=== PATIENT | female | born 2000 | race Hispanic/Latino ===

== ENCOUNTER 2024-07-21 01:18 | Observation (INO) | payer BC, OTHER ==
[2024-07-21] MEDS ORDERED: Boostrix 0.5 ML (Tdap) VIAL (>/=7 yrs of age) ONE (01:25)
[2024-07-21] MEDS ORDERED: Sodium Chloride 0.9% 100 ML ONE (01:25)
[2024-07-21] MEDS ORDERED: CEFAZOLIN 2 GM VIAL ONE (01:25)
[2024-07-21 02:07] LABS: Alcohol 236.5 mg/dL (Less than 10)
[2024-07-21] MEDS ORDERED: Lidocaine 1% w/Epinephrine 1:100K 20 ML VIAL ONE (02:07)
[2024-07-21 02:08] LABS: #Basophils 0.04 10x3/uL (0.0-0.2); #Eosinophils Less than 0.03 10x3/uL (0.0-0.7); %Basophils 0.7 % (0.0-1.0); %Eosinophils 0.4 % (0.0-10.0); %Lymphocytes 25.6 % (21.0-51.0); %Monocytes 5.7 % (0.0-10.0); %Neutrophils 66.5 % (42.0-75.0); Hematocrit 32.8 % (36.0-47.0); Hemoglobin 11.3 g/dL (12.0-16.0); Mean Corpuscular HGB CONC 34.5 g/dL (32.0-36.0); Mean Corpuscular Volume 90.1 fL (78.0-98.0); Mean Platelet Volume 10.4 fL (7.4-10.4); Platelet Count 206 10x3/uL (130-400); RBC Distribution Width 13.1 % (11.5-14.5); Red Blood Cell (RBC) Count 3.64 mill/uL (4.20-5.40)
[2024-07-21 02:10] LABS: ALT (SGPT) 9 U/L (8-55); AST (SGOT) 14 U/L (5-34); Albumin 4.6 g/dL (3.5-5.0); Alkaline Phosphatase 68 U/L (40-110); Anion Gap 14 mmol/L (10-20); BUN (Urea Nitrogen) 5 mg/dL (7.0-18.7); Bilirubin, Total 0.7 mg/dL (0.2-1.2); Calc. Creatinine Clearance 0 mL/min (70-130); Carbon Dioxide 20 mmol/L (22-29); Chloride 111 mmol/L (98-107); Estimated GFR 104; Globulin 2.8 g/dL (2.4-3.5); Glucose 123 mg/dL (70-105); Lipase 16 U/L (8-78); Potassium 3.2 mmol/L (3.5-5.1); Protein, Total 7.4 g/dL (6.0-8.3); Sodium 142 mmol/L (136-145)
[2024-07-21 02:11] LABS: PTT 24.7 sec (22.9-36.1); Prothrombin Time 13.3 sec (12.0-14.7)
[2024-07-21 02:16] LABS: Troponin I Less than 0.010 ng/mL (< 0.028)
[2024-07-21 03:37] LABS: Actual Bicarbonate (HCO3v) 19.1 mEq/L (22-28); Base Excess -6.8 mEq/L (-2.0 to +3.0); Calcium, Ionized (venous) 0.99 mmol/L (1.16-1.32); Chloride (VBG) 117 mmol/L (98-106); Hematocrit-VBG 33 % (36.0-47.0); Hemoglobin (Hb) 11.3 g/dL (11.7-15.5); Potassium (VBG) 3.46 mmol/L (3.70-5.30); Sodium 145 mmol/L (133-146); pH (venous) 7.298 (7.32-7.43)
[2024-07-21 04:48] LABS: Bacteria/HPF None Seen HPF (None Seen); Bilirubin Negative (Negative); Blood, Urine Negative (Negative); CAUTI Indications for Culture Spinal Cord Injury; Clarity Clear (Clear); Glucose, Urine (Dipstick) Normal (Negative); Ketone, Urine Negative (Negative); Leukocyte Negative Leu/uL (Negative); Nitrite Negative (Negative); Protein, Urine (Dipstick) Negative (Neg-Trace); RBC/HPF 0-3 HPF (0-3); Specific Gravity, Urine 1.027 (1.002-1.036); Squamous Epithelial None Seen HPF (0-3); Urobilinogen Normal mg/dL (Less than 2); WBC/HPF None Seen HPF (0-3); pH, Urine 5.5 (5.0-9.0)
[2024-07-21 04:50] LABS: Urine Culture Reflex No No
[2024-07-21 04:51] LABS: Amphetamine Not Detected (NotDetected); Barbiturates Screen Not Detected (NotDetected); Benzodiazepine Screen Not Detected (NotDetected); Cocaine Metabolite Screen Not Detected (NotDetected); Methadone Not Detected (NotDetected); Methamphetamine Not Detected (NotDetected); Opiate Screen Not Detected (NotDetected); Oxycodone Screen Not Detected (NotDetected); Phencyclidine (PCP) Not Detected (NotDetected); THC/Cannabinoid Screen Not Detected (NotDetected); Tricyclic Screen Not Detected (NotDetected)
[2024-07-21] MEDS ORDERED: Ondansetron ODT 4 MG TAB PO PRN (05:08)
[2024-07-21] MEDS ORDERED: Morphine 2 MG/ML VIAL SLOW IVP PRN (05:08)
[2024-07-21] MEDS ORDERED: Dextrose 5% in Water 1,000 ML IV PRN (05:08)
[2024-07-21] MEDS ORDERED: Acetaminophen 325 MG TAB PO PRN (05:08)
[2024-07-21] MEDS ORDERED: Glucagon 1 MG/ML KIT IM PRN (05:08)
[2024-07-21] MEDS ORDERED: Morphine 4 MG/ML VIAL SLOW IVP PRN (05:08)
[2024-07-21] MEDS ORDERED: Dextrose 50% Abboject 50 ML SYRINGE SLOW IVP PRN (05:08)
[2024-07-21 05:42] VITALS: BMI 24.6
[2024-07-21 05:43] VITALS: TEMP 98.8
[2024-07-21] MEDS ORDERED: Acetaminophen 500 MG TAB ONE (05:45)
[2024-07-21 08:53] VITALS: BP 118/70
[2024-07-21] MEDS ORDERED: Iopamidol-370 76% 500 ML MDV (1 ML CHARGE) ONE (09:47)
== END 2024-07-21 10:11 | disposition home or self-care (01) ==
LOC: ERS 01:18 → ERHOLD 03:01
PROVIDERS: ADMIT Surgery; ATTEND Surgery
DX: R20.2 Paresthesia of skin (principal); S01.112A Laceration without foreign body of left eyelid and periocular area, initial encounter; S02.2XXA Fracture of nasal bones, initial encounter for closed fracture; I95.9 Hypotension, unspecified; F10.90 Alcohol use, unspecified, uncomplicated; Y90.9 Presence of alcohol in blood, level not specified; Z79.899 Other long term (current) drug therapy; V89.2XXA Person injured in unspecified motor-vehicle accident, traffic, initial encounter
CPT/HCPCS: 36415; 70450; 70486; 71045; 71260; 72125; 72141; 74177; 80053; 80306; 80307; 81001; 82805; 83690; 84484; 85025; 85610; 85730; 86850; 86900; 86901; 90715; 93005; 94760; G0378; G0390; Q9967